=== PATIENT | female | born 1990 | race Caucasian/White ===

== ENCOUNTER 2018-02-20 10:30 | Inpatient (IN) | payer OTHER ==
[2018-02-20] MEDS ORDERED: AMPICILLIN SODIUM 2 GM VIAL ONE (10:58)
[2018-02-20] MEDS ORDERED: AMPICILLIN - 2 GM in SODIUM CHLORIDE 100 ML IVPB ONE (11:00)
[2018-02-20] MEDS: ELECTROLYTE-148 SOLN 1,000 ML IV SCH (11:00)
[2018-02-20 11:37] VITALS: BMI 24.1
[2018-02-20] MEDS: DEXTROSE 5%-LACTATED RINGERS 1,000 ML IV SCH (11:40)
[2018-02-20 11:53] LABS: BASO % 0.4 % (0-2.0); EOS % 0.4 % (0-4.5); HEMATOCRIT 33.5 % (32.4-45.2); HEMOGLOBIN 10.7 GM/dL (10.7-15.3); LYMPH % 17.4 % (8-40); MCH 25.1 pg (25.7-33.7); MCHC 31.9 g/dl (32.0-36.0); MEAN CELL VOLUME 78.6 fl (80-96); MEAN PLT VOLUME 8.3 fl (7.5-11.1); MONO % 5.6 % (3.8-10.2); NEUT % 76.2 % (42.8-82.8); PLATELET COUNT 270 K/MM3 (134-434); RBC 4.26 M/mm3 (3.60-5.2); RDW 14.7 % (11.6-15.6); WHITE BLOOD COUNT 10.6 K/mm3 (4.0-10.0)
[2018-02-20] MEDS ORDERED: TUBERCULIN PPD 5 TU/0.1ML SYRINGE (IN PATIENT USE ONLY) ID ONE (12:00)
[2018-02-20] MEDS ORDERED: FENTANYL/BUPIVACAINE/NS/PF - PCEA - 50 ML DISP.SYRIN EP ONE ×2 (12:00→16:42)
[2018-02-20] MEDS ORDERED: BUPIVACAINE HCL/PF 0.25% (2.5MG/ML) 10 ML VIAL ONE (12:15)
[2018-02-20 12:27] LABS: COCAINE, UR NEGATIVE ng/ml (CUTOFF=300); METHADONE, UR NEGATIVE ng/ml (CUTOFF=300); OPIATES, URI NEGATIVE ng/ml (CUTOFF=300); PHENCYCLIDINE,URINE NEGATIVE ng/ml (CUTOFF=25); URINE AMPHETAMINES NEGATIVE ng/ml (CUTOFF=500); URINE BARBITURATES NEGATIVE ng/ml (CUTOFF=200); URINE BENZODIAZEPINES NEGATIVE ng/ml (CUTOFF=200)
[2018-02-20 12:53] LABS: CHLORIDE 104 mmol/L (98-107); POTASSIUM 4.1 mmol/L (3.5-5.1); SODIUM 137 mmol/L (136-145)
[2018-02-20 12:58] LABS: INR 0.88 (0.83-1.09); PROTHROMBIN TIME (PATIENT) 9.9 SEC (9.7-13.0)
[2018-02-20 13:00] LABS: ALK PHOS 155 U/L (45-117); ANION GAP 10 MMOL/L (8-16); BILIRUBIN,TOTAL 0.4 mg/dL (0.2-1.0); BLOOD UREA NITROGEN 7 mg/dL (7-18); CALCIUM 8.8 mg/dL (8.5-10.1); CO2 23 mmol/L (21-32); CREATININE 0.6 mg/dL (0.55-1.02); GLUCOSE,RANDOM 70 mg/dL (74-106); SGOT/AST 18 U/L (15-37); SGPT/ALT 17 U/L (12-78); TOT PROT 7.3 g/dl (6.4-8.2)
--- NOTE | 2018-02-20 13:32 | HP ---
Past Medical History - Primary Care Physician PCP:: Noble Cerda - Admission Chief Complaint: 38.4 weeks, labor History of Present Illness: 27 yo f [id number], 38.4 weeks by sono c/o contraction pain scale 8 since this am , uterus term , cx 4 vcm 80 vx -3 mi, fhr cat i , regular contraction History Source: Patient Limitations to Obtaining History: No Limitations - Past Medical History ...: 2 ...Para: 0 ...Induced : 1 ...LMP: 05/26/17 ... Weeks Gestation by Dates: 38.4 ...EDC by Dates: 03/02/18 ...EDC by Sono: 03/07/18 - Past Surgical History Hx Myomectomy: No Hx Transabdominal Cerclage: No - Smoking History Smoking history: Never smoked Have you smoked in the past 12 months: No - Alcohol/Substance Use Hx Alcohol Use: No - Social History History of Recent Travel: No Home Medications - Allergies Allergies/Adverse Reactions: Allergies Allergy/AdvReac Type Severity Reaction Status Date / Time No Known Allergies Allergy Verified 12/13/17 01:41 - Home Medications Home Medications: Ambulatory Orders 95/Iron Fum/Folic/Dha [ + Dha Combo Pack] 1 each PO DAILY 12/13 Review of Systems - Review of Systems Constitutional: reports: Weakness Eyes: reports: No Symptoms HENT: reports: No Symptoms Neck: reports: No Symptoms Cardiovascular: reports: No Symptoms Respiratory: reports: No Symptoms Gastrointestinal: reports: No Symptoms Genitourinary: reports: No Symptoms Breasts: reports: No Symptoms Reported Musculoskeletal: reports: No Symptoms Integumentary: reports: No Symptoms Neurological: reports: No Symptoms Endocrine: reports: No Symptoms Hematology/Lymphatic: reports: No Symptoms Psychiatric: reports: No Symptoms Physical Exam - Maternity Vital Signs: Vital Signs Temperature 98.5 F 02/20/18 11:26 Pulse Rate 76 02/20/18 11:26 Respiratory Rate 20 02/20/18 11:26 Blood Pressure 129/83 02/20/18 11:26 O2 Sat by Pulse Oximetry (%) Constitutional: Yes: Well Nourished, No Distress, Calm Eyes: Yes: WNL, Conjunctiva Clear, EOM Intact HENT: Yes: WNL, Atraumatic, Normocephalic Neck: Yes: WNL, Supple, Trachea Midline Cardiovascular: Yes: WNL, Regular Rate and Rhythm Breast(s): Yes: WNL - Abdominal Exam/OB Fundal Height: 38 Number of Fetuses: Single Presentation: Vertex Regularity: Regular Intensity: Strong Monitor Mode: External Heart Rate Location: [facility] Category: I Accelerations: Uniform Decelerations: None - Vaginal Exam/OB Vaginal Bleediing: Bloody Show Dilatation (cm): 4 cm Effacement (%): 80 Amniotic Membrane Status: Bulging Station: -2 - Physical Exam Musculoskeletal: Yes: WNL Extremities: Yes: WNL Edema: LLE: Trace, RLE: Trace Deep Tendon Reflex Grade: Normal +2 ...Motor Strength: WNL Psychiatric: Yes: WNL - Labs Lab Results: CBC, BMP 02/20/18 11:30 02/20/18 11:30 Hemorrhage Risk Assessment - Risk Factors Medium Risk Factors: Yes: None High Risk Factors: Yes: None Risk Score: 1 Risk Level: Medium Risk Problem List - Problems (1) with 38 completed weeks gestation Code(s): Z3A.38 - 38 WEEKS GESTATION OF (2) Labor established Code(s): DAK2918 - Assessment/Plan plan admit, FH monitoring, pain management
[2018-02-20] MEDS ORDERED: NALOXONE HCL 0.4 MG/ML VIAL IVPUSH PRN (14:01)
[2018-02-20] MEDS ORDERED: FENTANYL/BUPIVACAINE/NS/PF - PCEA - 50 ML DISP.SYRIN EP SCH (14:15)
[2018-02-20] MEDS: AMPICILLIN - 1 GM in SODIUM CHLORIDE 100 ML IVPB SCH ×2 (15:00→18:55)
[2018-02-20] MEDS ORDERED: AMPICILLIN SODIUM 1 GM VIAL ONE (16:42)
[2018-02-20] MEDS ORDERED: OXYTOCIN 30 UNITS in 0.9% NS 30 UNIT/500 ML INFUS.BAG IVPB ONE (19:23)
--- NOTE | 2018-02-20 19:41 | PN ---
Progress Note (short form) - Note Progress Note: cx 7 cm, 100 vx 0 mi, arom, clear fluiid , fhr cat 1, irregular contraction, advised pitocin stimulation, RBA discussed Problem List - Problems (1) with 38 completed weeks gestation Code(s): Z3A.38 - 38 WEEKS GESTATION OF (2) Labor established Code(s): GXG4511 -
[2018-02-20] MEDS ORDERED: OXYTOCIN 30 UNITS in 0.9% NS 30 UNIT/500 ML INFUS.BAG IVPB SCH (19:45)
[2018-02-20] MEDS ORDERED: OXYTOCIN 20 UNITS in 0.9% NS 20 UNIT/1,000 ML INFUS.BAG IV ONE (20:41)
--- NOTE | 2018-02-20 20:58 | PN ---
Progress Note (short form) - Note Progress Note: cx full 100 vx 2+ station, fhr cat , regular contraction, wants to push , encourged to push, instruction given Problem List - Problems (1) with 38 completed weeks gestation Code(s): Z3A.38 - 38 WEEKS GESTATION OF (2) Labor established Code(s): QJW2104 -
[2018-02-20] MEDS ORDERED: WITCH HAZEL 50% (TUCKS) 40 PAD/JAR PAD TP PRN (21:18)
[2018-02-20] MEDS ORDERED: METHYLERGONOVINE MALEATE 0.2 MG/1 ML AMP IM PRN (21:18)
[2018-02-20] MEDS ORDERED: BENZOCAINE 28 GM HEMORRHOIDAL OINTMENT TP PRN (21:18)
[2018-02-20] MEDS ORDERED: BENZOCAINE 20% 57 GM BOTTLE TP PRN (21:18)
[2018-02-20] MEDS ORDERED: BISACODYL 10 MG SUPP.RECT RC PRN (21:18)
--- NOTE | 2018-02-20 21:23 | PN ---
Delivery - Delivery Vaginal Delivery: Spontaneous (cx fully, head on pernium, head delivered , nasopharynx suctioned , ant. and post shou;lder with no difficulty, live baby girl 9/9 , 2 cm first degree vaginal mucosa repaired with 4 interupted suture of 20 chromic, ebl 3oocc , no complication) Type of Anesthesia: Local, Epidural EBL (cc): 300 Delivery, Single - Feeding Plan Initial Plan: Elected not to breastfeed exclusively throughout hospitalization
[2018-02-20] MEDS ORDERED: OXYTOCIN 20 UNITS in 0.9% NS 20 UNIT/1,000 ML INFUS.BAG IV SCH (21:30)
[2018-02-20 22:36] LABS: VENOUS PH 7.31 (7.32-7.42); VENOUS PO2 31.6 mmHg (28-48)
[2018-02-21] MEDS: ACETAMINOPHEN 325 MG TABLET (FP) PO PRN ×3 (00:04→21:58)
[2018-02-21] MEDS: IBUPROFEN 600 MG TABLET (FP) PO PRN ×3 (00:04→21:58)
[2018-02-21] MEDS: FERROUS SO4 325 MG TABLET (FP) PO SCH ×3 (00:11→17:00)
[2018-02-21 06:06] LABS: HBsAG SCREEN Negative (Negative)
[2018-02-21 08:06] LABS: RUBELLA IgG ANTIBODY < 0.90 index (Immune >0.99)
[2018-02-21 08:09] LABS: BASO % 0.3 % (0-2.0); EOS % 0.3 % (0-4.5); HEMATOCRIT 29.3 % (32.4-45.2); HEMOGLOBIN 9.3 GM/dL (10.7-15.3); LYMPH % 17.4 % (8-40); MCH 24.8 pg (25.7-33.7); MCHC 31.7 g/dl (32.0-36.0); MEAN CELL VOLUME 78.1 fl (80-96); MEAN PLT VOLUME 8.4 fl (7.5-11.1); MONO % 5.9 % (3.8-10.2); NEUT % 76.1 % (42.8-82.8); PLATELET COUNT 236 K/MM3 (134-434); RBC 3.75 M/mm3 (3.60-5.2); RDW 14.6 % (11.6-15.6); WHITE BLOOD COUNT 14.1 K/mm3 (4.0-10.0)
--- NOTE | 2018-02-21 08:23 | PN ---
Post Progress Note - Subjective Subjective: c/o perineal soreness Post Day: 1 Type of Delivery: Vital Signs: Vital Signs Temperature 98.3 F 02/21/18 06:32 Pulse Rate 68 02/21/18 06:32 Respiratory Rate 20 02/21/18 06:32 Blood Pressure 123/75 02/21/18 06:32 O2 Sat by Pulse Oximetry (%) 100 02/20/18 22:30 Breast Exam: Yes: Soft, Other (plans to breast feed). No: Engorged Uterus: Yes: Fundus Firm, Fundus below umbilicus, Non-tender Lochia: Yes: Rubra Lochia, amount: Moderate Extremities: Yes: Calves non-tender Perineum: Yes: Episiotomy Activity: Ambulating - Labs Labs: CBC WBC 14.1 K/mm3 (4.0-10.0) H 02/21/18 07:15 RBC 3.75 M/mm3 (3.60-5.2) 02/21/18 07:15 Hgb 9.3 GM/dL (10.7-15.3) L 02/21/18 07:15 Hct 29.3 % (32.4-45.2) L 02/21/18 07:15 MCV 78.1 fl (80-96) L 02/21/18 07:15 MCH 24.8 pg (25.7-33.7) L 02/21/18 07:15 MCHC 31.7 g/dl (32.0-36.0) L 02/21/18 07:15 RDW 14.6 % (11.6-15.6) 02/21/18 07:15 Plt Count 236 K/MM3 (134-434) 02/21/18 07:15 MPV 8.4 fl (7.5-11.1) 02/21/18 07:15 Absolute Neuts (auto) 10.7 K/mm3 (1.5-8.0) H 02/21/18 07:15 Neutrophils % 76.1 % (42.8-82.8) 02/21/18 07:15 Lymphocytes % 17.4 % (8-40) 02/21/18 07:15 Monocytes % 5.9 % (3.8-10.2) 02/21/18 07:15 Eosinophils % 0.3 % (0-4.5) 02/21/18 07:15 Basophils % 0.3 % (0-2.0) 02/21/18 07:15 Nucleated RBC % 0 % (0-0) 02/21/18 07:15 Problem List - Problems (1) Vaginal delivery Code(s): O80 - ENCOUNTER FOR FULL-TERM UNCOMPLICATED DELIVERY (2) Encounter for visit Code(s): Z39.2 - ENCOUNTER FOR ROUTINE FOLLOW-UP Assessment/Plan anemia stable s/p vag delivery plan ct pp care. discharge today
[2018-02-21] MEDS: PRENATAL VITAMINS W/ FOLIC ACID TABLET (FP) PO SCH (10:00)
[2018-02-21] MEDS: ELECTROLYTE-148 SOLN 1,000 ML IV SCH (12:15)
[2018-02-21] MEDS: DEXTROSE 5%-LACTATED RINGERS 1,000 ML IV SCH (12:16)
[2018-02-21] MEDS ORDERED: SENNOSIDES/DOCUSATE COMBO (SENNA PLUS) TABLET (UD) PO PRN (22:00)
[2018-02-22] MEDS: FERROUS SO4 325 MG TABLET (FP) PO SCH ×2 (08:00→17:00)
[2018-02-22] MEDS: PRENATAL VITAMINS W/ FOLIC ACID TABLET (FP) PO SCH (09:23)
[2018-02-22] MEDS: IBUPROFEN 600 MG TABLET (FP) PO PRN (09:24)
[2018-02-22] MEDS: ACETAMINOPHEN 325 MG TABLET (FP) PO PRN (09:24)
[2018-02-22 11:40] VITALS: BP 129/79; PULSE 67; TEMP 98
--- NOTE | 2018-02-22 15:05 | DS ---
Physical Exam-[employer] Vital Signs: Vital Signs Temperature 98.0 F 02/22/18 10:00 Pulse Rate 67 02/22/18 10:00 Respiratory Rate 20 02/22/18 10:00 Blood Pressure 129/79 02/22/18 10:00 O2 Sat by Pulse Oximetry (%) 100 02/20/18 22:30 Constitutional: Yes: Well Nourished Eyes: Yes: Conjunctiva Clear HENT: Yes: Atraumatic Neck: Yes: Supple Cardiovascular: Yes: Regular Rate and Rhythm Respiratory: Yes: Regular Gastrointestinal: Yes: Normal Bowel Sounds ...Rectal Exam: Yes: WNL Renal/: Yes: WNL, Urethral Discharge External Genitalia: Yes: Normal Vaginal Exam: Yes: Normal Cervix: Yes: Normal Uterus: Yes: Firm ....Post : Yes: Uterus firm, Moderate lochia serosa Extremities: Yes: WNL Integumentary: Yes: WNL Labs: CBC, BMP 02/21/18 07:15 02/20/18 11:30 Delivery - Delivery Vaginal Delivery: Spontaneous (cx fully, head on pernium, head delivered , nasopharynx suctioned , ant. 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 Present: No Gender: Female Weight: 5 lb 7 oz Position: OA Total Hours ROM (Hrs/Mins): 1hr.55min - 1 Minute Total Score: 9 5 Minutes Total Score: 9 - Feeding Plan Initial Plan: Elected not to breastfeed exclusively throughout hospitalization Discharge Summary Reason For Visit: LABOR ADMISSION Current Active Problems Encounter for visit (Acute) Labor established (Acute) with 38 completed weeks gestation (Acute) Vaginal delivery (Acute) Procedures: Principal: Normal spontaneous vaginal delivery Hospital Course: Routine care Condition: Good - Instructions Diet, Activity, Other Instructions: Regular diet No douching, no sexual intercourse F/U in clinic in 6 weeks Disposition: HOME - Home Medications Comprehensive Discharge Medication List: Ambulatory Orders 95/Iron Fum/Folic/Dha [ + Dha Combo Pack] 1 each PO DAILY 12/13
== END 2018-02-22 18:45 | disposition home or self-care (01) | DRG 560 ==
LOC: JLDR 10:30 → J3W 23:52
PROVIDERS: ADMIT Obstetrics & Gynecology; ATTEND Obstetrics & Gynecology
PROC: 0HQ9XZZ Repair Perineum Skin, External Approach (ICD-10-PCS; principal; 2018-02-20)
PROC: 10E0XZZ Delivery of Products of Conception, External Approach (ICD-10-PCS; 2018-02-20)
DX: O70.0 First degree perineal laceration during delivery (principal); Z3A.38 38 weeks gestation of pregnancy; Z37.0 Single live birth
CPT/HCPCS: 36415; 59409; 80048; 80053; 80307; 82803; 85025; 85610; 85730; 86593; 86762; 86850; 86900; 86901; 87340; 87389

== ENCOUNTER 2019-03-20 04:41 | Emergency (ER) | payer OTHER ==
[2019-03-20 05:44] VITALS: BP 100/65; PULSE 74; TEMP 97.9; BMI 44.3
--- NOTE | 2019-03-20 05:47 | PDOC ---
History of Present Illness - General Chief Complaint: ,Possible Stated Complaint: R/O Time Seen by Provider: 03/20/19 05:31 History Source: Patient Exam Limitations: No Limitations - History of Present Illness Initial Comments: 03/20/19 05:41 Patient is a 29F who is presenting to the ED for evaluation of vaginal bleeding. Patient states that she found out she was 5 days ago and has not had any formal imaging. LMP is unknown, patient has irregular spotty periods at baseline. Reports cramping but not severe pain, took tylenol at home. Denies fevers, chills, nausea, vomiting. Denies chest pain and shortness of breath. Denies dysuria, vaginal bleeding, changes to discharge. Past History - Past Medical History Allergies/Adverse Reactions: Allergies Allergy/AdvReac Type Severity Reaction Status Date / Time No Known Allergies Allergy Verified 12/13/17 01:41 Home Medications: Ambulatory Orders 95/Iron Fum/Folic/Dha [ + Dha Combo Pack] 1 each PO DAILY 12/13 Asthma: No Cancer: No Cardiac Disorders: No Diabetes: No HTN: No Seizures: No Thyroid Disease: No - Psycho Social/Smoking Cessation Hx Smoking History: Never smoked Have you smoked in the past 12 months: No Hx Alcohol Use: No Drug/Substance Use Hx: No Hx Substance Use Treatment: No Review of Systems - Review of Systems Able to Perform ROS?: Yes Comments:: 03/20/19 05:43 GENERAL/CONSTITUTIONAL: No fever or chills. No weakness. HEAD, EYES, EARS, NOSE AND THROAT: No change in vision. No sore throat. CARDIOVASCULAR: No chest pain or shortness of breath RESPIRATORY: No cough, wheezing, or hemoptysis. GASTROINTESTINAL: No nausea, vomiting, diarrhea or constipation. GENITOURINARY: No dysuria, frequency, or change in urination. MUSCULOSKELETAL: No joint or muscle swelling or pain. No neck or back pain. SKIN: No rash NEUROLOGIC: No headache, vertigo, loss of consciousness, or change in strength/ sensation. ENDOCRINE: No increased thirst. No abnormal weight change ALLERGIC/IMMUNOLOGIC: No hives or skin allergy. *Physical Exam - Physical Exam Comments: 03/20/19 05:44 GENERAL: Awake, alert, and fully oriented, in no acute distress HEAD: No signs of trauma, normocephalic, atraumatic EYES: PERRLA, EOMI, sclera anicteric, conjunctiva clear ENT: Auricles normal inspection, hearing grossly normal, nares patent, oropharynx clear without exudates. Moist mucosa NECK: Normal ROM, supple, no lymphadenopathy, JVD, or masses LUNGS: No distress, speaks full sentences, clear to auscultation bilaterally HEART: Regular rate and rhythm, normal S1 and S2, no murmurs, rubs or gallops, peripheral pulses normal and equal bilaterally. ABDOMEN: Soft, nontender, normoactive bowel sounds. No guarding, no rebound. No masses EXTREMITIES: Normal inspection, Normal range of motion, no edema. No clubbing or cyanosis. NEUROLOGICAL: Cranial nerves II through XII grossly intact. Normal speech, normal gait, no focal sensorimotor deficits SKIN: Warm, Dry, normal turgor, no rashes or lesions noted. Medical Decision Making - Medical Decision Making 03/20/19 05:44 Patient is a 29F here today with vaginal bleeding. Vitals normal and stable. Upon being informed of wait for ultrasound, patient stated that she would go home and come back. Bedside ultrasound performed showed no free fluid, no definitive IUP. Patient appears well, of sound mind. Offered labs, pelvic exam, declined. Will AMA. Discharge - Discharge Information Problems reviewed: Yes Clinical Impression/Diagnosis: Vaginal bleeding Condition: Good Disposition: AGAINST MEDICAL ADVICE - Follow up/Referral Referrals: Ese Mcfarland MD [Primary Care Provider] - - Patient Discharge Instructions Patient Printed Discharge Instructions: DI for Vaginal Bleeding During Additional Instructions: You were seen today in the ED for evaluation of your vaginal bleeding. You are leaving against medical advice. You are welcome to return to the ED at any time. Please follow up with your OBGYN if you do not wish to return to the ED. It is especially important to return immediately if you have increasing bleeding and pain. - Post Discharge Activity
--- NOTE | 2019-03-20 05:57 | PDOC ---
Attending Attestation - Resident Resident Name: Jeevan Rebolledo - ED Attending Attestation I have performed the following: The case was reviewed & discussed with the resident, I agree w/resident's findings & plan - HPI HPI: 03/20/19 05:49 see resident hpi - Physicial Exam PE: 03/20/19 05:49 see resident exam - Medical Decision Making 03/20/19 05:52 pt signed ama because she had to go to work
== END 2019-03-20 05:55 | disposition left against medical advice (07) ==
LOC: JER 04:41
DX: N93.9 Abnormal uterine and vaginal bleeding, unspecified (principal)
CPT/HCPCS: 99282-25

== ENCOUNTER 2019-03-30 14:57 | Emergency (ER) | payer OTHER ==
[2019-03-30 15:06] VITALS: TEMP 98.1; BMI 20.1
[2019-03-30] MEDS ORDERED: SODIUM CHLORIDE 0.9% 500 ML INFUS.BAG IV ONE (15:17)
--- NOTE | 2019-03-30 15:18 | PDOC ---
History of Present Illness - General Chief Complaint: Vaginal Bleeding Stated Complaint: VAGINAL BLEEDING 2MONTHS PG - History of Present Illness Initial Comments: The pt is a 29F at 8 wks by LMP who presents for evaluation of 2 days of vaginal bleeding and lower abdominal pain. The pt was seen approximately 2 weeks ago for vaginal spotting w/o pain. Since that time she has had intermittent spotting but the pain is new. The pain is RLQ/R inguinal pain that is intermittent, achy/cramping, non-radiating, mildly alleviated by Tylenol, and not exacerbated by anything she can identify. The bleeding has increased the last two days. She has used 2 pads/day and denies clot passage. She endorses associated malaise and lightheadedness. She denies falls, syncope, chest pain, trouble breathing, vision changes, dysuria, or changes in sensation. 03/30/19 15:29 Past History - Past Medical History Allergies/Adverse Reactions: Allergies Allergy/AdvReac Type Severity Reaction Status Date / Time No Known Allergies Allergy Verified 03/30/19 15:02 Home Medications: Ambulatory Orders 95/Iron Fum/Folic/Dha [ + Dha Combo Pack] 1 each PO DAILY 12/13 Cephalexin Monohydrate [Keflex -] 500 mg PO Q6H #20 capsule 03/30/19 Asthma: No Cancer: No Cardiac Disorders: No COPD: No Diabetes: No HTN: No Seizures: No Thyroid Disease: No - Immunization History Immunization Up to Date: Yes - Psycho Social/Smoking Cessation Hx Smoking History: Never smoked Have you smoked in the past 12 months: No Hx Alcohol Use: No Drug/Substance Use Hx: No Hx Substance Use Treatment: No Review of Systems - Review of Systems Able to Perform ROS?: Yes Comments:: GENERAL/CONSTITUTIONAL: No fever or chills. No weakness HEAD, EYES, EARS, NOSE AND THROAT: No change in vision. No change in hearing. No sore throat CARDIOVASCULAR: No chest pain or shortness of breath RESPIRATORY: Denies cough, hemoptysis GASTROINTESTINAL: No nausea, vomiting, diarrhea or constipation GENITOURINARY: No dysuria, frequency, or change in urination MUSCULOSKELETAL: No joint or muscle swelling or pain. No neck or back pain SKIN: No rash NEUROLOGIC: No headache, vertigo, loss of consciousness, or change in strength/ sensation ENDOCRINE: No increased thirst. No abnormal weight change ALLERGIC/IMMUNOLOGIC: No hives or skin allergy 03/30/19 15:17 Is the patient limited German proficient: No *Physical Exam - Vital Signs Last Vital Signs Temp Pulse Resp BP Pulse Ox 98.1 F 90 17 89/55 L 99 03/30/19 15:02 03/30/19 15:02 03/30/19 15:02 03/30/19 15:02 03/30/19 15:02 - Physical Exam Comments: GENERAL: Awake, alert, and oriented to person/place/time, in no acute distress HEAD: No signs of trauma, normocephalic, atraumatic EYES: PERRLA, EOMI, sclera anicteric, conjunctiva clear ENT: Hearing grossly normal, nares patent, oropharynx clear without exudates. Moist mucosa LUNGS: No distress, speaks in full sentences, clear to auscultation bilaterally HEART: Regular rate and rhythm, normal S1 and S2, no murmurs appreciated, peripheral pulses normal and equal bilaterally ABDOMEN: Soft, R inguinal TTP (near pubic symphysis) w/o rebound or guarding; normoactive bowel sounds PELVIC: Blood w/o clot seen in vaginal canal, no POC, cervical os fingertip dilated, no CMT, no adenexal masses or tenderness EXTREMITIES: Normal inspection, Normal range of motion, no edema. No clubbing or cyanosis NEUROLOGICAL: Cranial nerves II through XII grossly intact. Normal speech, no focal sensorimotor deficits SKIN: Warm, Dry 03/30/19 15:17 ED Treatment Course - LABORATORY CBC & Chemistry Diagram: 03/30/19 13:35 03/30/19 13:35 - RADIOLOGY Radiology Studies Ordered: Category Date Time Status TRANSVAGINAL US PREG [US] Stat Ultrasound 03/30/19 15:11 Ordered Radiograph Interpretation: Transvaginal FINDINGS: The uterus measures 9.0 x 5.2 x 4.6 cm. A single intrauterine gestation is identified. By ultrasound measurements 6 weeks 1 day. Yolk sac identified. No heart rate identified. The right ovary measures 2.7 x 1.8 x 1.4 cm. The left ovary measures 3.2 x 2.1 x 2.0 cm. There are no adnexal masses. There is no free fluid in the pelvis. IMPRESSION Single intrauterine gestation of 6 weeks 1 day. No heart rate identified. Recommend clinical correlation. Recommend 03/30/19 16:47 Medical Decision Making - Medical Decision Making The pt is a 29F at 8 wks by LMP who presents for evaluation of 2 days of vaginal bleeding and lower abdominal pain. ED Course CMP, CBC, Beta-quant, UA, UCx TVUS Tylenol and IVF for symptomatic relief 03/30/19 15:34 No leukocytosis No anemia Lytes wnl No ANGELIQUE LFTs wnl Beta [id number] UA w/ evidence of UTI -Keflex Rx TVUS w/ single live IUP at 6wks and 1day w/ no FHT Plan for D/C w/ OBGYN f/u Discharge instructions and return precautions given Pt in agreement and verbalized understanding Dispo: home 03/30/19 17:19 Discharge - Discharge Information Problems reviewed: Yes Clinical Impression/Diagnosis: Threatened Condition: Stable Disposition: HOME - Admission No - Follow up/Referral Referrals: Ese Mcfarland MD [Primary Care Provider] - Sherlyn Ledezma MD [Staff Physician] - Noble Cerda MD [Staff Physician] - - Patient Discharge Instructions Patient Printed Discharge Instructions: DI for Threatened Additional Instructions: You were seen in the Emergency Department for evaluation of vaginal bleeding and abdominal cramping. You are not anemic. Your ultrasound was notable for a 6 week 1 day intrauterine gestation; however no heart beat was detected. This can be because it is early . Your urine was also notable for evidence of a urinary tract infection. A prescription for keflex was sent to your pharmacy, take as directed. Review the handout provided at discharge. Follow up with chely CARDENAS or the referral provided. Return to the Emergency Department if you develop fevers/chills, have persistent bleeding, pass clots, have severe pain despite Tylenol use, dizziness, worsening symptoms, or any new/concerning symptoms. - Post Discharge Activity Work/Back to School Note: Back to Work
[2019-03-30] MEDS ORDERED: ACETAMINOPHEN 325 MG TABLET (FP) PO ONE (15:44)
[2019-03-30 15:49] LABS: BASO % 0.7 % (0-2.0); EOS % 0.3 % (0-4.5); HEMATOCRIT 38.2 % (32.4-45.2); HEMOGLOBIN 12.7 GM/dL (10.7-15.3); LYMPH % 31.8 % (8-40); MCH 29.1 pg (25.7-33.7); MCHC 33.3 g/dl (32.0-36.0); MEAN CELL VOLUME 87.4 fl (80-96); MEAN PLT VOLUME 7.3 fl (7.5-11.1); MONO % 5.2 % (3.8-10.2); PLATELET COUNT 342 K/MM3 (134-434); RBC 4.37 M/mm3 (3.60-5.2); WHITE BLOOD COUNT 6.3 K/mm3 (4.0-10.0)
[2019-03-30 15:51] LABS: INR 1.08 (0.83-1.09); PROTHROMBIN TIME (PATIENT) 12.7 SEC (9.7-13.0)
[2019-03-30 15:54] LABS: ACTIVATED PTT 35.9 SECONDS (25.2-36.5)
[2019-03-30] MEDS ORDERED: ACETAMINOPHEN 325 MG TABLET (FP) ONE (16:17)
--- NOTE | 2019-03-30 16:27 | PDOC ---
Documentation entered by Almita Andino SCRIBE, acting as scribe for Donaldo Elliott MD. Donaldo Elliott MD: This documentation has been prepared by the scribe, Almita Andino SCRIBE, under my direction and personally reviewed by me in its entirety. I confirm that the documentation accurately reflects all work, treatment, procedures, and medical decision making performed by me. Attending Attestation - Resident Resident Name: Kar Hurd - ED Attending Attestation I have performed the following: I have examined & evaluated the patient, The case was reviewed & discussed with the resident, I agree w/resident's findings & plan, Exceptions are as noted - HPI HPI: 03/30/19 16:20 The patient is a 29-year-old female, , 8 weeks by LMP who presents to the emergency department with vaginal bleeding. The patient was seen in the ER on 03/20 for vaginal spotting, signed out AMA prior to getting TVUS. Since then, shes been having intermittent episodes of spotting, which increased in frequency last 2 days The patient reports associated symptoms of right inguinal/pelvic pain, mild relief with Tylenol. The patient reports she bleeds through 2 pads in a day, today she bled through one pad. Denies fever, chills. Is not taking vitamins, has not seen OB. Denies headache, dizziness, focal weakness or numbness, chest pain, shortness of breath, nausea, vomiting, diarrhea, urinary symptoms, lower extremity edema. - Physicial Exam PE: 03/30/19 15:58 Agree with resident's physical exam. No lower abd ttp. - Medical Decision Making 03/30/19 16:13 29-year-old female, currently 8 weeks by dates presents emergency department with vaginal spotting and pelvic discomfort. Vitals remarkable for mild hypotension to 89/55, patient states that she runs on the lower side, but will give a liter of fluids and recheck vitals. Exam per Dr. Hurd with blood in vault and slightly open cervical os with no active bleeding. Differential includes threatened AB versus inevitable AB versus first trimester vaginal bleeding. Previous type and screen once with positive Rh factor, no need for RhoGam. Currently labs, ultrasound, and urinalysis pending. Will reassess 03/30/19 17:34 Labs with beta-hCG 10,000 range. Transvaginal ultrasound with approximate 6-week +1-day with no heart rates. Likely threatened versus inevitable . Results discussed with patient, all questions answered. Urinalysis with bacteria and nitrite positive, will treat with Keflex. Patient has an OB with whom she will follow-up within 48 hours. Vitals rechecked and are within normal limits. Patient is well-appearing and clinically stable for discharge home. I discussed the physical exam findings, ancillary test results and final diagnoses with the patient. I answered all of the patient's questions. The patient was satisfied with the care received and felt comfortable with the discharge plan and treatment plan. The patient will call their primary care physician within 24 hours to arrange follow-up and will return to the Emergency Department with any new, persistent or worsening symptoms.
[2019-03-30 16:29] LABS: ALBUMIN 4.1 g/dl (3.4-5.0); BILIRUBIN,TOTAL 0.4 mg/dL (0.2-1); BLOOD UREA NITROGEN 13.8 mg/dL (7-18); CALCIUM 8.6 mg/dL (8.5-10.1); CREATININE 0.8 mg/dL (0.55-1.3); POTASSIUM 3.7 mmol/L (3.5-5.1); TOT PROT 7.4 g/dl (6.4-8.2)
[2019-03-30 17:06] LABS: EPI CELLS 2.7 /HPF (0-5/HPF); HYALINE CASTS 3 /lpf (0-8); PH,URINE 5.5 (5.0-8.0); URINE APPEARANCE CLEAR; URINE BACTERIA 27.7 /hpf (NEGATIVE); URINE BILIRUBIN NEGATIVE (NEGATIVE); URINE COLOR YELLOW; URINE GLUCOSE (UA) NEGATIVE (NEGATIVE); URINE KETONE NEGATIVE (NEGATIVE); URINE LEUK ESTERASE NEGATIVE (NEGATIVE); URINE NITRITE NEGATIVE (NEGATIVE); URINE PROTEIN NEGATIVE (NEGATIVE); URINE RBC 7 /hpf (0-4); URINE UROBILINOGEN 0.2 mg/dL (0.2-1.0); URINE WBC 2 /hpf (0-5)
[2019-03-30] MEDS ORDERED: CEPHALEXIN MONOHYDRATE 500 MG CAPSULE (UD) PO ONE (17:21)
[2019-03-30 17:30] VITALS: BP 103/63; PULSE 75
== END 2019-03-30 17:30 | disposition home or self-care (01) ==
LOC: JER 14:57
DX: O26.891 Other specified pregnancy related conditions, first trimester (principal); O20.0 Threatened abortion; O23.41 Unspecified infection of urinary tract in pregnancy, first trimester; Z3A.01 Less than 8 weeks gestation of pregnancy
CPT/HCPCS: 36415; 76817-TC; 80053; 81003; 84702; 85025; 85610; 85730; 86850; 86900; 86901; 87086; 99283-25